=== PATIENT | female | born 1945 | race Caucasian/White ===

== ENCOUNTER → 2017-04-30 | Outpatient (CLI) | payer MEDICARE, OTHER | END | disposition home or self-care (01) | LOC: CARD 10:14 | PROVIDERS: ATTEND Family Medicine | DX: S84 Injury of nerves at lower leg level (principal); G57.83 Other specified mononeuropathies of bilateral lower limbs; X58.XXXA Exposure to other specified factors, initial encounter; Y93.89 Activity, other specified; Y99.8 Other external cause status; Y92.89 Other specified places as the place of occurrence of the external cause | CPT/HCPCS: 95885; 95909 ==

== ENCOUNTER 2019-07-07 17:14 | Outpatient (CLI) | payer MEDICARE | END 2019-07-07 23:59 | disposition home or self-care (01) | LOC: RAD 17:14 | PROVIDERS: ATTEND Obstetrics & Gynecology Female Pelvic Medicine and Reconstructive Surgery | DX: Z01.411 Encounter for gynecological examination (general) (routine) with abnormal findings (principal); N13.30 Unspecified hydronephrosis; R93.5 Abnormal findings on diagnostic imaging of other abdominal regions, including retroperitoneum | CPT/HCPCS: 76830 ==

== ENCOUNTER → 2020-01-17 | Outpatient (CLI) | payer MEDICARE | END | disposition home or self-care (01) | LOC: RAD 07:27 | PROVIDERS: ATTEND Family Medicine | DX: R63.0 Anorexia (principal) | CPT/HCPCS: 74240 ==

== ENCOUNTER 2020-02-01 10:28 | Day surgery (SDC) | payer MEDICARE ==
[~2020-02-01] VITALS: Ht 165.1 cm; Wt 88.0 kg
[2020-02-01] MEDS ORDERED: SODIUM CHLORIDE 0.9% 1,000 ML IV SCH (11:09)
[2020-02-01] MEDS ORDERED: CEFAZOLIN PMX 1GM/50ML 50 ML IV STA (11:09)
[2020-02-01 11:11] VITALS: BP 142/83
[2020-02-01] MEDS ORDERED: CEFAZOLIN PMX 1GM/50ML 50 ML IV ONE (11:30)
[2020-02-01] MEDS ORDERED: PLEASE ENTER HEIGHT AND WEIGHT MC SCH (11:30)
[2020-02-01] MEDS ORDERED: LIDOCAINE 1%, 20ML ONE (11:31)
[2020-02-01] MEDS ORDERED: FENTANYL PF 100 MCG/2ML ONE (11:40)
[2020-02-01] MEDS ORDERED: MIDAZOLAM 1 MG/ML, 5ML ONE (11:41)
[2020-02-01] MEDS ORDERED: FLUMAZENIL 0.1 MG/1 ML, 5ML ONE (11:41)
[2020-02-01] MEDS ORDERED: NALOXONE 1 MG/ML, 2ML ONE (11:41)
[2020-02-02] MEDS ORDERED: RIVA20TA PO (19:26)
[2020-02-02] MEDS ORDERED: CEFD300C37 PO (19:26)
== END 2020-02-01 17:00 | disposition home or self-care (01) ==
LOC: OUT 10:28
PROVIDERS: ATTEND Specialist
DX: N13.1 Hydronephrosis with ureteral stricture, not elsewhere classified (principal); N17.9 Acute kidney failure, unspecified; M81.0 Age-related osteoporosis without current pathological fracture; C54.1 Malignant neoplasm of endometrium; C53.9 Malignant neoplasm of cervix uteri, unspecified; Z79.01 Long term (current) use of anticoagulants; Z79.891 Long term (current) use of opiate analgesic; Z79.899 Other long term (current) drug therapy; Z86.718 Personal history of other venous thrombosis and embolism; Z98.890 Other specified postprocedural states
CPT/HCPCS: 50433; 50693; 99156; 99157; C1725; C1729; C1751; C1769; C1894; C2625; J0690; J2250; J3010; J7030; 76942; J2310

== ENCOUNTER 2020-02-02 09:37 | Inpatient (IN) | payer MEDICARE ==
[~2020-02-02] VITALS: Ht 165.1 cm; Wt 87.5 kg
--- NOTE | 2020-02-02 10:03 | NUR ---
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
[2020-02-02] MEDS ORDERED: MORPHINE SULFATE 4 MG/ML, 1ML ONE (10:50)
[2020-02-02] MEDS ORDERED: FAMOTIDINE 20 MG/2 ML ONE (10:50)
[2020-02-02] MEDS ORDERED: ONDANSETRON 2MG/ML, 2ML ONE (10:50)
[2020-02-02] MEDS ORDERED: ONDANSETRON 2MG/ML, 2ML IVPush ONE (11:00)
[2020-02-02] MEDS ORDERED: MORPHINE SULFATE 4 MG/ML, 1ML IVPush PRN ×2 (11:00→16:30)
[2020-02-02] MEDS ORDERED: SODIUM CHLORIDE 0.9% 1,000ML IVBOLUS ONE (11:00)
[2020-02-02] MEDS ORDERED: SODIUM CHLORIDE FLUSH 10ML SYR IVF ONE (11:00)
[2020-02-02] MEDS ORDERED: FAMOTIDINE 20 MG/2 ML IV ONE (11:00)
--- NOTE | 2020-02-02 11:00 | NUR ---
Pt exhibiting anxiety, dry heaves after meds administered. Spoke with pt & told her we can offer add'l meds if needed, just give a bit more time for meds to work. Verb. understanding, call light within reach, SR up x2. Pt undressed for UA sample. Found to have L nephrostomy tube with CDI dressing, pink tinged urine present in drainage bag attached to leg. States she has tube for kidney failure & does not make urine otherwise. ER informed.
--- NOTE | 2020-02-02 11:26 | NUR ---
Ruth RN: Pt anxious after meds adminstered. Verbally reassured, warm blankets/air blower applied. Pt now resting w/ eyes closed. Did require 2 liters oxygen via NC to maintain adequate SPO2 post-meds.
[2020-02-02 11:40] LABS: MEAN CORPUSCULAR HEMOGLOBIN 22.4 pg (27.0-34.8); MEAN CORPUSCULAR HGB CONC 31.2 g/dL (32.4-35.8); MEAN CORPUSCULAR VOLUME 71.8 fL (80-100); RED BLOOD COUNT 4.87 x10^6/uL (3.82-5.3); RED CELL DISTRIBUTION WIDTH 24.5 % (9.6-15.2)
[2020-02-02 11:45] LABS: ALANINE AMINOTRANSFERASE 32 U/L (12-78); ALBUMIN 2.7 g/dL (3.4-5.0); ANION GAP 7 mmol/L (5-15); CALCIUM 8.8 mg/dL (8.5-10.1); CHLORIDE 110 mmol/L (98-107); CREATININE 1.53 mg/dL (0.55-1.02)
[2020-02-02 11:47] LABS: ALKALINE PHOSPHATASE 218 U/L (45-117); BILIRUBIN,TOTAL 0.3 mg/dL (0.2-1.0); TOTAL PROTEIN 7.7 g/dL (6.4-8.2)
--- NOTE | 2020-02-02 12:00 | NUR ---
REPORT FROM WILBERT VALLE. PT RESTING IN BED, DENIES PAIN. PT ABLE TO ROLL FOR ASSESSMENT, BUT STATES "I'M NOT REALLY SURE WHY I'M HERE. THEY PULLED THE OTHER TUBE OUT, THEY SAID IT WAS ALL FIXED BUT NOW THEY PUT THIS TUBE IN ME AGAIN". RN REORIENTS PATIENT TO TUBES THAT ARE ATTACHED TO HER BODY, AND WHAT THEY ARE FOR. BLANKETS APPLIED. PT STABLE.
[2020-02-02 12:10] LABS: BASOPHILS # (AUTO) 0.05 x10^3/uL (0-0.1); BASOPHILS % (AUTO) 1 % (0-1); EOSINOPHILS # (AUTO) 0.05 x10^3/uL (0-0.4); EOSINOPHILS % (AUTO) 0 % (1-7); LYMPHOCYTES # (AUTO) 0.71 x10^3/uL (1-3.4); LYMPHOCYTES % (AUTO) 6 % (22-44); MD SCAN; MEAN PLATELET VOLUME 10.2 fL (7.4-10.4); MONOCYTES # (AUTO) 0.62 x10^3/uL (0.2-0.8); MONOCYTES % (AUTO) 6 % (2-9); NEUTROPHILS # (AUTO) 9.78 x10^3/uL (1.8-6.8); NEUTROPHILS % (AUTO) 87 % (42-75); PLATELET COUNT 524 x10^3/uL (130-400)
--- NOTE | 2020-02-02 12:30 | NUR ---
PT OFF UNIT FOR TESTING.
--- NOTE | 2020-02-02 13:45 | NUR ---
PT RETURNED FROM TESTING. URINE COLLECTED FROM NEPHROSTOMY TUBE AND SENT TO LAB.
[2020-02-02 14:10] LABS: CULTURE INDICATED? YES; MICROSCOPIC INDICATED
--- NOTE | 2020-02-02 14:50 | NUR ---
PT STABLE, GETTING GRUMPY SHE WANTS TO BE IN A DIFFERENT AREA. PT STATES "WILL THEY TAKE ME SOMEWHERE ELSE AFTER THIS PROCEDURE? IT IS JUST TO DEPRESSING DOWN HERE." RN INFORMS PATIENT THAT UNLESS A BED IS AVAILABLE, SHE WILL HAVE TO COME BACK DOWN HERE.
[2020-02-02] MEDS ORDERED: MORPHINE SULFATE 4 MG/ML, 1ML IVPush ONE (15:00)
[2020-02-02] MEDS ORDERED: FENTANYL PF 100 MCG/2ML ONE (15:38)
[2020-02-02] MEDS ORDERED: MIDAZOLAM 1 MG/ML, 5ML ONE (15:38)
[2020-02-02] MEDS ORDERED: FLUMAZENIL 0.1 MG/1 ML, 5ML ONE (15:38)
[2020-02-02] MEDS ORDERED: LIDOCAINE 1%, 20ML ONE (15:39)
[2020-02-02] MEDS ORDERED: NALOXONE 1 MG/ML, 2ML ONE (15:39)
--- NOTE | 2020-02-02 15:50 | NUR ---
PT TAKEN TO SURGERY TO HAVE A RIGHT NEPHROSTOMY TUBE PLACED. PT UPSET ABOUT HAVING TO HAVE ANOTHER TUBE PLACED.
[2020-02-02] MEDS ORDERED: SODIUM CHLORIDE 0.9% 1,000 ML IV ONE (16:12)
[2020-02-02] MEDS ORDERED: SODIUM CHLORIDE FLUSH 10ML SYR IVF PRN (16:30)
[2020-02-02] MEDS ORDERED: ONDANSETRON 2MG/ML, 2ML IVPush PRN (16:30)
[2020-02-02] MEDS ORDERED: VISIPAQUE 320MG/ML, 50ML BOTTLE ONE (16:46)
--- NOTE | 2020-02-02 16:49 | NUR ---
PT RETURNED FROM PROCEDURE. RIGHT NEPHROSTOMY TUBE INSERTED WITHOUT DIFF. WILL CONTINUE TO MONITOR PATIENT. PT RECEIVED: 3MG VERSED 75MCG FENTANYL & 200ML NACL PT REMAINS DROWSY,. BILATERAL LEG BAGS IN PLACE.
--- NOTE | 2020-02-02 16:58 | NUR ---
SON MARTA CALLED TO CHECK ON HIS MOTHERS STATUS. COMING TO VISIT NOW.
--- NOTE | 2020-02-02 17:18 | NUR ---
REPORT TO JACQUELINE VALLE.
[2020-02-02 17:50] VITALS: BP 159/91
--- NOTE | 2020-02-02 17:53 | NUR ---
SON AT BEDSIDE. BOTH NEPHROSTOMY BAGS EMPTIED FOR A TOTAL RIGHT: 400 LEFT: 50 PT TO ROOM PER TECH.
[2020-02-02] MEDS ORDERED: RIVA20TA PO (19:26)
[2020-02-02] MEDS ORDERED: CEFD300C37 PO (19:26)
[2020-02-02 19:31] VITALS: BP 120/65
[2020-02-02] MEDS ORDERED: morphine SULFATE 10 MG/ML, 1ML IVPush PRN (20:30)
[2020-02-02] MEDS ORDERED: CIPROFLOXACIN/PMX 400MG/200ML 200 ML IV SCH (20:30)
[2020-02-02] MEDS: POTASSIUM CHLORIDE 20 MEQ in SODIUM CHLORIDE 0.45% 1,000 ML IV SCH (20:45)
[2020-02-02] MEDS: CEFDINIR 300 MG CAPSULE PO SCH (21:44)
[2020-02-02] MEDS: MAGNESIUM HYDROXIDE 8%, 30ML UDC PO PRN (21:44)
[2020-02-02] MEDS: TEMAZEPAM 15 MG CAPSULE PO PRN (21:44)
[2020-02-02] MEDS: RIVAROXABAN 20 MG TABLET PO SCH (21:44)
[2020-02-03 01:47] VITALS: BP 118/73
[2020-02-03 04:42] LABS: ALANINE AMINOTRANSFERASE 48 U/L (12-78); ANION GAP 4 mmol/L (5-15); CALCIUM 7.7 mg/dL (8.5-10.1); CHLORIDE 109 mmol/L (98-107); CREATININE 1.45 mg/dL (0.55-1.02)
[2020-02-03 04:45] LABS: ALKALINE PHOSPHATASE 322 U/L (45-117); BILIRUBIN,TOTAL 0.6 mg/dL (0.2-1.0); MEAN CORPUSCULAR HEMOGLOBIN 22.5 pg (27.0-34.8); MEAN CORPUSCULAR HGB CONC 30.9 g/dL (32.4-35.8); MEAN CORPUSCULAR VOLUME 72.7 fL (80-100); MEAN PLATELET VOLUME 9.8 fL (7.4-10.4); PLATELET COUNT 406 x10^3/uL (130-400); RED BLOOD COUNT 3.51 x10^6/uL (3.82-5.3); RED CELL DISTRIBUTION WIDTH 24.5 % (9.6-15.2); TOTAL PROTEIN 5.6 g/dL (6.4-8.2)
[2020-02-03 05:14] LABS: BASOPHILS # (AUTO) 0.05 x10^3/uL (0-0.1); BASOPHILS % (AUTO) 1 % (0-1); EOSINOPHILS % (AUTO) 4 % (1-7); LYMPHOCYTES # (AUTO) 1.35 x10^3/uL (1-3.4); LYMPHOCYTES % (AUTO) 16 % (22-44); MD SCAN; MONOCYTES # (AUTO) 0.74 x10^3/uL (0.2-0.8); MONOCYTES % (AUTO) 9 % (2-9); NEUTROPHILS # (AUTO) 5.92 x10^3/uL (1.8-6.8); NEUTROPHILS % (AUTO) 71 % (42-75)
[2020-02-03] MEDS: POTASSIUM CHLORIDE 20 MEQ in SODIUM CHLORIDE 0.45% 1,000 ML IV SCH ×2 (06:34→17:08)
[2020-02-03 08:14] VITALS: BP 119/72
[2020-02-03] MEDS: CEFDINIR 300 MG CAPSULE PO SCH ×2 (09:38→20:49)
[2020-02-03] MEDS: HYDROcodone/APAP 5/325 TABLET PO PRN ×2 (09:40→17:07)
[2020-02-03 13:32] VITALS: BP 103/66
[2020-02-03] MEDS: ONDANSETRON 2MG/ML, 2ML IVPush PRN (13:47)
[2020-02-03] MEDS: MAGNESIUM HYDROXIDE 8%, 30ML UDC PO PRN (17:07)
[2020-02-03] MEDS: RIVAROXABAN 20 MG TABLET PO SCH (17:07)
[2020-02-03 19:46] VITALS: BP 127/78
[2020-02-03] MEDS: TEMAZEPAM 15 MG CAPSULE PO PRN (20:49)
[2020-02-03] MEDS: MAGNESIUM HYDROXIDE 8%, 30ML UDC PO SCH (20:49)
[2020-02-03] MEDS ORDERED: MAGNESIUM HYDROXIDE 8%, 30ML UDC PO SCH (22:30)
[2020-02-04 00:53] VITALS: BP 129/77
[2020-02-04] MEDS: HYDROcodone/APAP 5/325 TABLET PO PRN ×3 (00:57→16:15)
[2020-02-04] MEDS: MAGNESIUM HYDROXIDE 8%, 30ML UDC PO SCH ×6 (00:58→20:59)
[2020-02-04] MEDS: POTASSIUM CHLORIDE 20 MEQ in SODIUM CHLORIDE 0.45% 1,000 ML IV SCH ×2 (03:57→14:21)
[2020-02-04 07:23] VITALS: BP 145/80
[2020-02-04 12:24] VITALS: BP 131/77
[2020-02-04 14:20] LABS: MEAN CORPUSCULAR HEMOGLOBIN 22.4 pg (27.0-34.8); MEAN CORPUSCULAR HGB CONC 30.4 g/dL (32.4-35.8); MEAN CORPUSCULAR VOLUME 73.7 fL (80-100); PLATELET COUNT 447 x10^3/uL (130-400); RED BLOOD COUNT 3.72 x10^6/uL (3.82-5.3); RED CELL DISTRIBUTION WIDTH 24.5 % (9.6-15.2)
[2020-02-04] MEDS: ONDANSETRON 2MG/ML, 2ML IVPush PRN (14:26)
[2020-02-04 14:31] LABS: ALANINE AMINOTRANSFERASE 30 U/L (12-78); CALCIUM 7.5 mg/dL (8.5-10.1); CREATININE 1.24 mg/dL (0.55-1.02)
[2020-02-04 14:33] LABS: ALKALINE PHOSPHATASE 252 U/L (45-117); BILIRUBIN,TOTAL 0.2 mg/dL (0.2-1.0); TOTAL PROTEIN 5.7 g/dL (6.4-8.2)
[2020-02-04 14:52] LABS: BASOPHILS # (AUTO) 0.05 x10^3/uL (0-0.1); BASOPHILS % (AUTO) 1 % (0-1); EOSINOPHILS # (AUTO) 0.17 x10^3/uL (0-0.4); EOSINOPHILS % (AUTO) 2 % (1-7); LYMPHOCYTES # (AUTO) 0.71 x10^3/uL (1-3.4); LYMPHOCYTES % (AUTO) 8 % (22-44); MD MORPH REVIEW ONLY; MONOCYTES # (AUTO) 0.62 x10^3/uL (0.2-0.8); MONOCYTES % (AUTO) 7 % (2-9); NEUTROPHILS # (AUTO) 7.86 x10^3/uL (1.8-6.8); NEUTROPHILS % (AUTO) 84 % (42-75)
[2020-02-04 14:53] LABS: ANION GAP 6 mmol/L (5-15); ANISOCYTOSIS 1+; CHLORIDE 107 mmol/L (98-107); MICROCYTOSIS 1+; POLYCHROMASIA 1+
[2020-02-04 14:54] LABS: <PLATELET ESTIMATE> ADEQUATE; <PLT MORPHOLOGY> NORMAL PLT MORPH
[2020-02-04] MEDS: RIVAROXABAN 20 MG TABLET PO SCH (18:30)
[2020-02-04 19:28] VITALS: BP 114/72
[2020-02-04] MEDS: TEMAZEPAM 15 MG CAPSULE PO PRN ×2 (21:18→21:24)
[2020-02-05] MEDS: MAGNESIUM HYDROXIDE 8%, 30ML UDC PO SCH ×5 (00:23→17:00)
[2020-02-05] MEDS: POTASSIUM CHLORIDE 20 MEQ in SODIUM CHLORIDE 0.45% 1,000 ML IV SCH ×2 (01:21→14:26)
[2020-02-05 01:22] VITALS: BP 115/76
[2020-02-05 07:36] VITALS: BP 118/69
[2020-02-05] MEDS: HYDROcodone/APAP 5/325 TABLET PO PRN ×4 (09:07→20:36)
[2020-02-05 14:11] VITALS: BP 121/71
[2020-02-05 15:07] LABS: BASOPHILS # (AUTO) 0.04 x10^3/uL (0-0.1); BASOPHILS % (AUTO) 1 % (0-1); EOSINOPHILS # (AUTO) 0.16 x10^3/uL (0-0.4); EOSINOPHILS % (AUTO) 2 % (1-7); LYMPHOCYTES # (AUTO) 0.95 x10^3/uL (1-3.4); LYMPHOCYTES % (AUTO) 10 % (22-44); MD NO; MEAN CORPUSCULAR HEMOGLOBIN 22.7 pg (27.0-34.8); MEAN CORPUSCULAR VOLUME 73.3 fL (80-100); MEAN PLATELET VOLUME 9.3 fL (7.4-10.4); MONOCYTES % (AUTO) 7 % (2-9); NEUTROPHILS % (AUTO) 81 % (42-75); PLATELET COUNT 453 x10^3/uL (130-400); RED BLOOD COUNT 3.63 x10^6/uL (3.82-5.3); RED CELL DISTRIBUTION WIDTH 24.1 % (9.6-15.2)
[2020-02-05 15:13] LABS: ALANINE AMINOTRANSFERASE 22 U/L (12-78); ALBUMIN 1.9 g/dL (3.4-5.0); ANION GAP 4 mmol/L (5-15); CALCIUM 8.3 mg/dL (8.5-10.1); CHLORIDE 105 mmol/L (98-107)
[2020-02-05 15:15] LABS: ALKALINE PHOSPHATASE 205 U/L (45-117); BILIRUBIN,TOTAL 0.1 mg/dL (0.2-1.0); CREATININE 1.16 mg/dL (0.55-1.02); TOTAL PROTEIN 5.9 g/dL (6.4-8.2)
[2020-02-05] MEDS: RIVAROXABAN 20 MG TABLET PO SCH (17:29)
[2020-02-05] MEDS: MORPHINE SULFATE 4 MG/ML, 1ML IVPush PRN (19:58)
[2020-02-05 20:44] VITALS: BP 123/73
[2020-02-05] MEDS: TEMAZEPAM 15 MG CAPSULE PO PRN (21:38)
[2020-02-06] MEDS: POTASSIUM CHLORIDE 20 MEQ in SODIUM CHLORIDE 0.45% 1,000 ML IV SCH ×2 (02:45→12:17)
[2020-02-06] MEDS: HYDROcodone/APAP 5/325 TABLET PO PRN ×4 (02:46→20:20)
[2020-02-06 06:20] VITALS: BP 113/73
[2020-02-06] MEDS ORDERED: LIDOCAINE 1%, 10ML ONE (12:21)
[2020-02-06] MEDS ORDERED: FLUMAZENIL 0.1 MG/1 ML, 5ML ONE (13:05)
[2020-02-06] MEDS ORDERED: MIDAZOLAM 1 MG/ML, 5ML ONE ×2 (13:05)
[2020-02-06] MEDS ORDERED: NALOXONE 1 MG/ML, 2ML ONE (13:05)
[2020-02-06] MEDS ORDERED: FENTANYL PF 100 MCG/2ML ONE (13:05)
[2020-02-06 13:56] VITALS: BP 116/78
[2020-02-06] MEDS ORDERED: CEFAZOLIN PMX 1GM/50ML 50 ML ONE (14:04)
[2020-02-06] MEDS: RIVAROXABAN 20 MG TABLET PO SCH (17:43)
[2020-02-06 19:01] VITALS: BP 100/65
[2020-02-06] MEDS: TEMAZEPAM 15 MG CAPSULE PO PRN ×2 (21:23→21:24)
[2020-02-06] MEDS: MAGNESIUM HYDROXIDE 8%, 30ML UDC PO PRN (22:21)
[2020-02-07 01:20] VITALS: BP 105/62
[2020-02-07] MEDS: MAGNESIUM HYDROXIDE 8%, 30ML UDC PO PRN (03:06)
[2020-02-07] MEDS: POTASSIUM CHLORIDE 20 MEQ in SODIUM CHLORIDE 0.45% 1,000 ML IV SCH ×2 (03:15→12:45)
[2020-02-07] MEDS: HYDROcodone/APAP 5/325 TABLET PO PRN ×4 (03:15→23:09)
[2020-02-07 06:54] VITALS: BP 112/74
[2020-02-07 15:22] VITALS: BP 128/74
[2020-02-07] MEDS: MAGNESIUM HYDROXIDE 8%, 30ML UDC PO SCH (15:42)
[2020-02-07] MEDS: RIVAROXABAN 20 MG TABLET PO SCH (17:36)
[2020-02-07 19:22] VITALS: BP 158/84
[2020-02-07] MEDS: TEMAZEPAM 15 MG CAPSULE PO PRN ×2 (19:38→19:39)
[2020-02-08 00:44] VITALS: BP 156/87
[2020-02-08] MEDS: POTASSIUM CHLORIDE 20 MEQ in SODIUM CHLORIDE 0.45% 1,000 ML IV SCH (01:39)
[2020-02-08 05:03] LABS: ANION GAP 3 mmol/L (5-15); CALCIUM 8.3 mg/dL (8.5-10.1); CHLORIDE 107 mmol/L (98-107); CREATININE 1.42 mg/dL (0.55-1.02)
[2020-02-08] MEDS: ONDANSETRON 2MG/ML, 2ML IVPush PRN ×2 (05:31→11:56)
[2020-02-08] MEDS: MORPHINE SULFATE 4 MG/ML, 1ML IVPush PRN ×3 (05:41→16:51)
[2020-02-08 08:15] VITALS: BP 132/84
[2020-02-08] MEDS: MAGNESIUM HYDROXIDE 8%, 30ML UDC PO SCH ×2 (08:28→11:56)
[2020-02-08] MEDS: HYDROcodone/APAP 5/325 TABLET PO PRN ×2 (11:39→19:27)
[2020-02-08 13:00] VITALS: BP 124/80
[2020-02-08] MEDS: RIVAROXABAN 20 MG TABLET PO SCH (16:51)
[2020-02-08] MEDS: FAMOTIDINE 10 MG TAB PO SCH (19:27)
[2020-02-08 20:18] VITALS: BP 119/72
[2020-02-08] MEDS: TEMAZEPAM 15 MG CAPSULE PO PRN ×2 (22:50→22:51)
[2020-02-09 01:33] VITALS: BP 125/75
[2020-02-09] MEDS: SODIUM CHLORIDE 0.45% 1,000 ML IV SCH ×2 (01:44→17:13)
[2020-02-09] MEDS: MORPHINE SULFATE 4 MG/ML, 1ML IVPush PRN ×2 (02:58→17:13)
[2020-02-09 05:12] LABS: MEAN CORPUSCULAR HEMOGLOBIN 23.1 pg (27.0-34.8); MEAN CORPUSCULAR HGB CONC 31.3 g/dL (32.4-35.8); MEAN CORPUSCULAR VOLUME 73.6 fL (80-100); MEAN PLATELET VOLUME 9.6 fL (7.4-10.4); PLATELET COUNT 561 x10^3/uL (130-400); RED BLOOD COUNT 3.72 x10^6/uL (3.82-5.3)
[2020-02-09 05:13] LABS: CALCIUM 8.8 mg/dL (8.5-10.1); CHLORIDE 104 mmol/L (98-107)
[2020-02-09 05:16] LABS: ANION GAP 4 mmol/L (5-15); CREATININE 2.26 mg/dL (0.55-1.02)
[2020-02-09] MEDS: HYDROcodone/APAP 5/325 TABLET PO PRN (05:49)
[2020-02-09] MEDS: ONDANSETRON 2MG/ML, 2ML IVPush PRN ×2 (05:52→17:14)
[2020-02-09 06:12] LABS: MD YES
[2020-02-09 06:14] LABS: <PLATELET ESTIMATE> INCREASED; <PLT MORPHOLOGY> NORMAL PLT MORPH; ANISOCYTOSIS 1+; LYMPH#(MANUAL) 0.71 x10^3/uL (1-3.4); LYMPHS% (MANUAL) 3 % (22-44); MICROCYTOSIS 1+; MONOS#(MANUAL) 0.47 x10^3/uL (0.3-2.7); MONOS% (MANUAL) 2 % (2-9); POLYCHROMASIA 1+; SEG#(MANUAL) 22.42 x10^3/uL (1.8-6.8); SEGS% (MANUAL) 95 % (42-75)
[2020-02-09] MEDS ORDERED: FUROSEMIDE 20 MG/2 ML IV ONE (07:00)
[2020-02-09 07:36] VITALS: BP 117/73
[2020-02-09] MEDS: FAMOTIDINE 10 MG TAB PO SCH ×2 (09:00→20:16)
[2020-02-09 09:57] LABS: ANION GAP 7 mmol/L (5-15); CALCIUM 8.4 mg/dL (8.5-10.1); CHLORIDE 104 mmol/L (98-107); CREATININE 2.47 mg/dL (0.55-1.02)
[2020-02-09] MEDS: MAGNESIUM HYDROXIDE 8%, 30ML UDC PO SCH (10:40)
[2020-02-09 11:54] LABS: ANION GAP 6 mmol/L (5-15); CALCIUM 8.6 mg/dL (8.5-10.1); CHLORIDE 103 mmol/L (98-107)
[2020-02-09 11:55] LABS: CREATININE 2.36 mg/dL (0.55-1.02)
[2020-02-09 13:04] VITALS: BP 109/69
[2020-02-09] MEDS ORDERED: MIDAZOLAM 1 MG/ML, 5ML ONE (13:27)
[2020-02-09] MEDS ORDERED: FLUMAZENIL 0.1 MG/1 ML, 5ML ONE (13:27)
[2020-02-09] MEDS ORDERED: NALOXONE 1 MG/ML, 2ML ONE (13:27)
[2020-02-09] MEDS ORDERED: FENTANYL PF 100 MCG/2ML ONE (13:27)
[2020-02-09] MEDS ORDERED: LIDOCAINE 1%, 10ML ONE (13:31)
[2020-02-09] MEDS ORDERED: VISIPAQUE 270 MG/ML, 50ML BOTTLE ONE (14:12)
[2020-02-09 18:43] VITALS: BP 100/56
[2020-02-09] MEDS: RIVAROXABAN 20 MG TABLET PO SCH (18:47)
[2020-02-09] MEDS: TEMAZEPAM 15 MG CAPSULE PO PRN (20:16)
[2020-02-10] VITALS (10 sets, daily range): BP systolic 97–117; BP diastolic 55–65
[2020-02-10] MEDS: HYDROcodone/APAP 5/325 TABLET PO PRN ×4 (01:19→21:12)
[2020-02-10] MEDS: SODIUM CHLORIDE 0.45% 1,000 ML IV SCH ×2 (01:20→17:00)
[2020-02-10 05:20] LABS: MEAN CORPUSCULAR HEMOGLOBIN 23.3 pg (27.0-34.8); MEAN CORPUSCULAR HGB CONC 31.8 g/dL (32.4-35.8); MEAN CORPUSCULAR VOLUME 73.1 fL (80-100); MEAN PLATELET VOLUME 9.3 fL (7.4-10.4); PLATELET COUNT 449 x10^3/uL (130-400); RED BLOOD COUNT 2.97 x10^6/uL (3.82-5.3); RED CELL DISTRIBUTION WIDTH 24.3 % (9.6-15.2)
[2020-02-10 05:34] LABS: ANION GAP 4 mmol/L (5-15); CALCIUM 8.3 mg/dL (8.5-10.1); CHLORIDE 104 mmol/L (98-107); CREATININE 1.47 mg/dL (0.55-1.02)
[2020-02-10] MEDS ORDERED: ACETAMINOPHEN 325 MG TABLET PO ONE (06:30)
[2020-02-10] MEDS ORDERED: DIPHENHYDRAMINE 25 MG CAPSULE PO ONE (06:30)
[2020-02-10 06:42] LABS: BASOPHILS # (AUTO) 0.02 x10^3/uL (0-0.1); BASOPHILS % (AUTO) 0 % (0-1); EOSINOPHILS # (AUTO) 0.21 x10^3/uL (0-0.4); EOSINOPHILS % (AUTO) 1 % (1-7); LYMPHOCYTES # (AUTO) 0.93 x10^3/uL (1-3.4); LYMPHOCYTES % (AUTO) 6 % (22-44); MD SCAN; MONOCYTES # (AUTO) 1.39 x10^3/uL (0.2-0.8); MONOCYTES % (AUTO) 9 % (2-9); NEUTROPHILS # (AUTO) 13.21 x10^3/uL (1.8-6.8); NEUTROPHILS % (AUTO) 84 % (42-75)
[2020-02-10] MEDS: FAMOTIDINE 10 MG TAB PO SCH ×2 (09:29→21:11)
[2020-02-10] MEDS: MAGNESIUM HYDROXIDE 8%, 30ML UDC PO SCH (09:29)
[2020-02-10 11:24] LABS: MICROSCOPIC INDICATED
[2020-02-10 11:26] LABS: CULTURE INDICATED? YES
[2020-02-10] MEDS ORDERED: POLYETHYLENE GLYCOL 17 GM PACKET PO PRN (20:00)
[2020-02-10] MEDS ORDERED: BISACODYL 10 MG SUPP PR PRN ×2 (20:00→21:00)
[2020-02-10] MEDS: TEMAZEPAM 15 MG CAPSULE PO PRN ×2 (21:11→21:12)
[2020-02-11 02:19] VITALS: BP 109/63
[2020-02-11] MEDS: SODIUM CHLORIDE 0.45% 1,000 ML IV SCH (02:20)
[2020-02-11] MEDS: HYDROcodone/APAP 5/325 TABLET PO PRN ×3 (03:41→17:07)
[2020-02-11 06:14] LABS: MEAN CORPUSCULAR HEMOGLOBIN 24.4 pg (27.0-34.8); MEAN CORPUSCULAR HGB CONC 31.8 g/dL (32.4-35.8); MEAN CORPUSCULAR VOLUME 76.7 fL (80-100); MEAN PLATELET VOLUME 9.7 fL (7.4-10.4); PLATELET COUNT 436 x10^3/uL (130-400); RED BLOOD COUNT 3.59 x10^6/uL (3.82-5.3); RED CELL DISTRIBUTION WIDTH 22.6 % (9.6-15.2)
[2020-02-11 06:17] LABS: ANION GAP 3 mmol/L (5-15); CALCIUM 8.5 mg/dL (8.5-10.1); CHLORIDE 106 mmol/L (98-107)
[2020-02-11 06:18] LABS: CREATININE 1.11 mg/dL (0.55-1.02)
[2020-02-11 06:47] LABS: BASOPHILS # (AUTO) 0.02 x10^3/uL (0-0.1); BASOPHILS % (AUTO) 0 % (0-1); EOSINOPHILS # (AUTO) 0.37 x10^3/uL (0-0.4); EOSINOPHILS % (AUTO) 4 % (1-7); LYMPHOCYTES % (AUTO) 10 % (22-44); MD SCAN; MONOCYTES % (AUTO) 9 % (2-9); NEUTROPHILS # (AUTO) 8.07 x10^3/uL (1.8-6.8); NEUTROPHILS % (AUTO) 78 % (42-75)
[2020-02-11] MEDS: POLYETHYLENE GLYCOL 17 GM PACKET PO SCH (08:12)
[2020-02-11] MEDS: MAGNESIUM HYDROXIDE 8%, 30ML UDC PO SCH (08:12)
[2020-02-11] MEDS: FAMOTIDINE 10 MG TAB PO SCH ×2 (08:12→20:50)
[2020-02-11 08:26] VITALS: BP 106/67
[2020-02-11] MEDS ORDERED: POLYETHYLENE GLYCOL 17 GM PACKET PO ONE (09:00)
[2020-02-11 12:07] VITALS: BP 107/70
[2020-02-11] MEDS: RIVAROXABAN 20 MG TABLET PO SCH (12:50)
[2020-02-11 19:26] VITALS: BP_SYST 105; BP_SYST 98; BP_DIAS 64; BP_DIAS 69
[2020-02-11] MEDS: TEMAZEPAM 15 MG CAPSULE PO PRN (20:50)
[2020-02-12 02:50] VITALS: BP 112/68
[2020-02-12] MEDS: HYDROcodone/APAP 5/325 TABLET PO PRN ×2 (02:59→10:31)
[2020-02-12 07:14] VITALS: BP 109/62
[2020-02-12] MEDS: MAGNESIUM HYDROXIDE 8%, 30ML UDC PO SCH (09:00)
--- NOTE | 2020-02-12 09:38 | NUR ---
Green activity sheet initiated. Up in chair for every meal, [place] [place] [facility] 3x/day. RN and pt agreed. Addendum: 02/12/20 at 0948 by CATALINO SEYMOUR OT Amended: Links added.
[2020-02-12] MEDS: POLYETHYLENE GLYCOL 17 GM PACKET PO SCH (10:31)
[2020-02-12] MEDS: FAMOTIDINE 10 MG TAB PO SCH ×2 (10:31→20:25)
[2020-02-12] MEDS: ONDANSETRON 2MG/ML, 2ML IVPush PRN ×2 (10:34→19:38)
--- NOTE | 2020-02-12 10:56 | NUR ---
02/12/20: Charly initiated: up to chair for meals [facility] pt and RN agreed Addendum: 02/12/20 at 1056 by Lovely Langford PT Amended: Links added.
[2020-02-12 13:08] VITALS: BP 128/80
[2020-02-12] MEDS: MORPHINE SULFATE 4 MG/ML, 1ML IVPush PRN (14:03)
[2020-02-12 15:33] LABS: ANION GAP 4 mmol/L (5-15); CALCIUM 8.7 mg/dL (8.5-10.1); CHLORIDE 104 mmol/L (98-107); CREATININE 0.87 mg/dL (0.55-1.02)
[2020-02-12 15:34] LABS: MEAN CORPUSCULAR HEMOGLOBIN 24.2 pg (27.0-34.8); MEAN CORPUSCULAR HGB CONC 31.4 g/dL (32.4-35.8); MEAN CORPUSCULAR VOLUME 76.9 fL (80-100); MEAN PLATELET VOLUME 8.8 fL (7.4-10.4); PLATELET COUNT 534 x10^3/uL (130-400); RED BLOOD COUNT 3.68 x10^6/uL (3.82-5.3); RED CELL DISTRIBUTION WIDTH 23.2 % (9.6-15.2)
[2020-02-12 16:26] LABS: BASOPHILS # (AUTO) 0.03 x10^3/uL (0-0.1); BASOPHILS % (AUTO) 0 % (0-1); EOSINOPHILS # (AUTO) 0.25 x10^3/uL (0-0.4); EOSINOPHILS % (AUTO) 3 % (1-7); LYMPHOCYTES # (AUTO) 0.93 x10^3/uL (1-3.4); LYMPHOCYTES % (AUTO) 11 % (22-44); MD MORPH REVIEW ONLY; MONOCYTES # (AUTO) 0.69 x10^3/uL (0.2-0.8); MONOCYTES % (AUTO) 8 % (2-9); NEUTROPHILS # (AUTO) 6.34 x10^3/uL (1.8-6.8); NEUTROPHILS % (AUTO) 77 % (42-75)
[2020-02-12 16:28] LABS: HYPOCHROMIA 1+; MICROCYTOSIS 1+; POLYCHROMASIA 1+
[2020-02-12 16:29] LABS: <PLATELET ESTIMATE> INCREASED; <PLT MORPHOLOGY> NORMAL PLT MORPH; OVALOCYTES 1+; ROULEAUX 1+
[2020-02-12] MEDS: RIVAROXABAN 20 MG TABLET PO SCH (17:33)
[2020-02-12 19:12] VITALS: BP 115/74
[2020-02-12] MEDS: TEMAZEPAM 15 MG CAPSULE PO PRN ×2 (20:24→20:25)
[2020-02-13 01:51] VITALS: BP 134/82
[2020-02-13 04:37] LABS: MEAN CORPUSCULAR HEMOGLOBIN 24.3 pg (27.0-34.8); MEAN CORPUSCULAR HGB CONC 31.7 g/dL (32.4-35.8); MEAN CORPUSCULAR VOLUME 76.6 fL (80-100); MEAN PLATELET VOLUME 8.9 fL (7.4-10.4); PLATELET COUNT 517 x10^3/uL (130-400); RED BLOOD COUNT 3.61 x10^6/uL (3.82-5.3); RED CELL DISTRIBUTION WIDTH 23.2 % (9.6-15.2)
[2020-02-13 04:39] LABS: ANION GAP 3 mmol/L (5-15); CALCIUM 8.6 mg/dL (8.5-10.1); CHLORIDE 107 mmol/L (98-107); CREATININE 0.84 mg/dL (0.55-1.02)
[2020-02-13] MEDS: HYDROcodone/APAP 5/325 TABLET PO PRN ×2 (04:42→18:11)
[2020-02-13 05:49] LABS: BASOPHILS # (AUTO) 0.03 x10^3/uL (0-0.1); BASOPHILS % (AUTO) 0 % (0-1); EOSINOPHILS # (AUTO) 0.26 x10^3/uL (0-0.4); EOSINOPHILS % (AUTO) 3 % (1-7); LYMPHOCYTES # (AUTO) 1.03 x10^3/uL (1-3.4); LYMPHOCYTES % (AUTO) 13 % (22-44); MD SCAN; MONOCYTES # (AUTO) 0.83 x10^3/uL (0.2-0.8); MONOCYTES % (AUTO) 10 % (2-9); NEUTROPHILS # (AUTO) 5.81 x10^3/uL (1.8-6.8); NEUTROPHILS % (AUTO) 73 % (42-75)
[2020-02-13 07:08] VITALS: BP 141/79
[2020-02-13] MEDS: FAMOTIDINE 10 MG TAB PO SCH ×2 (08:50→20:44)
[2020-02-13] MEDS: MAGNESIUM HYDROXIDE 8%, 30ML UDC PO SCH (08:50)
[2020-02-13] MEDS: CALCIUM CARBONATE 500 MG TAB.CHEW PO PRN (08:50)
[2020-02-13] MEDS: POLYETHYLENE GLYCOL 17 GM PACKET PO SCH (08:51)
[2020-02-13] MEDS: MORPHINE SULFATE 4 MG/ML, 1ML IVPush PRN (11:01)
[2020-02-13 14:26] VITALS: BP 138/68
[2020-02-13] MEDS: RIVAROXABAN 20 MG TABLET PO SCH (18:11)
[2020-02-13 18:25] VITALS: BP 124/73
[2020-02-13] MEDS: TEMAZEPAM 15 MG CAPSULE PO PRN (20:44)
[2020-02-14 01:11] VITALS: BP 153/84
[2020-02-14] MEDS: HYDROcodone/APAP 5/325 TABLET PO PRN ×3 (06:05→19:36)
[2020-02-14 07:10] VITALS: BP 122/75
[2020-02-14] MEDS: FAMOTIDINE 10 MG TAB PO SCH (09:47)
[2020-02-14] MEDS: POLYETHYLENE GLYCOL 17 GM PACKET PO SCH (09:47)
[2020-02-14] MEDS: MAGNESIUM HYDROXIDE 8%, 30ML UDC PO SCH (09:47)
[2020-02-14 13:38] VITALS: BP 135/80
[2020-02-14] MEDS: CALCIUM CARBONATE 500 MG TAB.CHEW PO PRN (18:02)
[2020-02-14] MEDS: RIVAROXABAN 20 MG TABLET PO SCH (18:02)
[2020-02-14 19:21] VITALS: BP 135/68
[2020-02-14] MEDS: FAMOTIDINE 20 MG TABLET PO SCH (19:36)
[2020-02-14] MEDS: TEMAZEPAM 15 MG CAPSULE PO PRN ×2 (20:52→22:15)
[2020-02-15 00:22] VITALS: BP 132/81
[2020-02-15] MEDS ORDERED: SODIUM CHLORIDE 0.9% 2,000 ML IV ONE (04:00)
[2020-02-15] MEDS: HYDROcodone/APAP 5/325 TABLET PO PRN ×2 (04:09→19:33)
[2020-02-15 05:12] LABS: MEAN CORPUSCULAR HGB CONC 31.2 g/dL (32.4-35.8); MEAN CORPUSCULAR VOLUME 76.9 fL (80-100); MEAN PLATELET VOLUME 8.8 fL (7.4-10.4); PLATELET COUNT 606 x10^3/uL (130-400); RED BLOOD COUNT 4.01 x10^6/uL (3.82-5.3); RED CELL DISTRIBUTION WIDTH 23.2 % (9.6-15.2)
[2020-02-15 05:14] LABS: ALANINE AMINOTRANSFERASE 38 U/L (12-78); ANION GAP 3 mmol/L (5-15); CALCIUM 9.1 mg/dL (8.5-10.1); CHLORIDE 103 mmol/L (98-107); CREATININE 0.79 mg/dL (0.55-1.02)
[2020-02-15 05:17] LABS: ALKALINE PHOSPHATASE 180 U/L (45-117); BILIRUBIN,TOTAL 0.3 mg/dL (0.2-1.0); TOTAL PROTEIN 6.6 g/dL (6.4-8.2)
[2020-02-15 05:52] LABS: BASOPHILS # (AUTO) 0.08 x10^3/uL (0-0.1); BASOPHILS % (AUTO) 1 % (0-1); EOSINOPHILS # (AUTO) 0.24 x10^3/uL (0-0.4); EOSINOPHILS % (AUTO) 3 % (1-7); LYMPHOCYTES # (AUTO) 1.13 x10^3/uL (1-3.4); LYMPHOCYTES % (AUTO) 13 % (22-44); MD SCAN; MONOCYTES % (AUTO) 9 % (2-9); NEUTROPHILS # (AUTO) 6.47 x10^3/uL (1.8-6.8); NEUTROPHILS % (AUTO) 74 % (42-75)
[2020-02-15 07:32] VITALS: BP 129/78
[2020-02-15] MEDS: POLYETHYLENE GLYCOL 17 GM PACKET PO SCH (07:58)
[2020-02-15] MEDS: MAGNESIUM HYDROXIDE 8%, 30ML UDC PO SCH (07:58)
[2020-02-15] MEDS: FAMOTIDINE 20 MG TABLET PO SCH (07:58)
[2020-02-15] MEDS: MORPHINE SULFATE 4 MG/ML, 1ML IVPush PRN (08:10)
[2020-02-15] MEDS ORDERED: ZOLPIDEM 5MG TABLET PO PRN (10:30)
[2020-02-15] MEDS ORDERED: PROCHLORPERAZINE 10MG TABLET PO PRN (11:30)
[2020-02-15] MEDS ORDERED: DIPHENHYDRAMINE 50 MG/ML, 1ML IVPush ONE (13:00)
[2020-02-15] MEDS ORDERED: FOSAPREPITANT 150 MG in SODIUM CHLORIDE 0.9% 145 ML IV ONE (13:00)
[2020-02-15] MEDS ORDERED: FAMOTIDINE 20 MG/2 ML IVPush ONE (13:00)
[2020-02-15] MEDS ORDERED: ONDANSETRON 16 MG, DEXAMETHASONE 12 MG in SODIUM CHLORIDE 0.9% 50 ML IVPB ONE (13:00)
[2020-02-15 14:06] VITALS: BP 127/71
[2020-02-15] MEDS ORDERED: CISPLATIN IV ONE (15:00)
[2020-02-15] MEDS ORDERED: SODIUM CHLORIDE 0.9% IV ONE (15:00)
[2020-02-15] MEDS: RIVAROXABAN 20 MG TABLET PO SCH (16:46)
[2020-02-15] MEDS ORDERED: SODIUM CHLORIDE 0.9% IVPush ONE ×2 (17:00→18:00)
[2020-02-15] MEDS ORDERED: MANNITOL IVPush ONE ×2 (17:00→18:00)
[2020-02-15 19:38] VITALS: BP 134/73
[2020-02-15] MEDS: LORazepam 0.5MG TABLET PO PRN (23:39)
[2020-02-16 00:40] VITALS: BP 120/68
[2020-02-16] MEDS: HYDROcodone/APAP 5/325 TABLET PO PRN ×3 (06:18→20:11)
[2020-02-16] MEDS: CALCIUM CARBONATE 500 MG TAB.CHEW PO PRN (06:18)
[2020-02-16 06:42] VITALS: BP 131/80
[2020-02-16] MEDS: FAMOTIDINE 20 MG TABLET PO SCH (08:18)
[2020-02-16] MEDS: MAGNESIUM HYDROXIDE 8%, 30ML UDC PO SCH (08:18)
[2020-02-16] MEDS: POLYETHYLENE GLYCOL 17 GM PACKET PO SCH (08:19)
[2020-02-16] MEDS: ONDANSETRON 2MG/ML, 2ML IVPush PRN (08:37)
[2020-02-16] MEDS: PROCHLORPERAZINE 5 MG/ML, 2ML IV SCH ×3 (11:07→23:00)
[2020-02-16] MEDS ORDERED: PROCHLORPERAZINE 5 MG/ML, 2ML IV SCH (13:00)
[2020-02-16] MEDS: ONDANSETRON 2MG/ML, 2ML IV SCH ×2 (13:51→20:12)
[2020-02-16 14:01] VITALS: BP 112/68
[2020-02-16] MEDS: RIVAROXABAN 20 MG TABLET PO SCH (16:43)
[2020-02-16 19:45] VITALS: BP 126/71
[2020-02-16] MEDS: TEMAZEPAM 15 MG CAPSULE PO PRN (20:11)
[2020-02-16] MEDS: LORazepam 0.5MG TABLET PO PRN (23:35)
[2020-02-17] MEDS: ONDANSETRON 2MG/ML, 2ML IV SCH ×2 (02:38→08:06)
[2020-02-17 02:41] VITALS: BP 136/65
[2020-02-17] MEDS: HYDROcodone/APAP 5/325 TABLET PO PRN ×3 (05:23→23:12)
[2020-02-17] MEDS: PROCHLORPERAZINE 5 MG/ML, 2ML IV SCH (05:23)
[2020-02-17 05:44] LABS: MEAN CORPUSCULAR HEMOGLOBIN 24.4 pg (27.0-34.8); MEAN CORPUSCULAR HGB CONC 31.6 g/dL (32.4-35.8); MEAN CORPUSCULAR VOLUME 77.1 fL (80-100); MEAN PLATELET VOLUME 8.6 fL (7.4-10.4); PLATELET COUNT 530 x10^3/uL (130-400); RED BLOOD COUNT 3.49 x10^6/uL (3.82-5.3); RED CELL DISTRIBUTION WIDTH 23.4 % (9.6-15.2)
[2020-02-17 05:51] LABS: ALBUMIN 1.9 g/dL (3.4-5.0); ANION GAP 7 mmol/L (5-15); CALCIUM 8.5 mg/dL (8.5-10.1); CHLORIDE 105 mmol/L (98-107)
[2020-02-17 05:56] LABS: ALANINE AMINOTRANSFERASE 24 U/L (12-78); ALKALINE PHOSPHATASE 139 U/L (45-117); BILIRUBIN,TOTAL 0.2 mg/dL (0.2-1.0); CREATININE 0.89 mg/dL (0.55-1.02); TOTAL PROTEIN 5.6 g/dL (6.4-8.2)
[2020-02-17 06:03] LABS: BASOPHILS # (AUTO) 0.04 x10^3/uL (0-0.1); BASOPHILS % (AUTO) 0 % (0-1); EOSINOPHILS # (AUTO) 0.13 x10^3/uL (0-0.4); EOSINOPHILS % (AUTO) 1 % (1-7); LYMPHOCYTES # (AUTO) 1.15 x10^3/uL (1-3.4); LYMPHOCYTES % (AUTO) 8 % (22-44); MD MORPH REVIEW ONLY; MONOCYTES % (AUTO) 6 % (2-9); NEUTROPHILS # (AUTO) 11.71 x10^3/uL (1.8-6.8); NEUTROPHILS % (AUTO) 85 % (42-75)
[2020-02-17 06:04] LABS: ANISOCYTOSIS 2+; HYPOCHROMIA 1+; MICROCYTOSIS 1+; OVALOCYTES 1+; POLYCHROMASIA 1+
[2020-02-17 06:05] LABS: <PLATELET ESTIMATE> INCREASED; <PLT MORPHOLOGY> NORMAL PLT MORPH
[2020-02-17 06:50] VITALS: BP 136/80
[2020-02-17] MEDS: MAGNESIUM HYDROXIDE 8%, 30ML UDC PO SCH (07:02)
[2020-02-17] MEDS: POLYETHYLENE GLYCOL 17 GM PACKET PO SCH (07:02)
[2020-02-17] MEDS: FAMOTIDINE 20 MG TABLET PO SCH (08:06)
[2020-02-17] MEDS: LORazepam 0.5MG TABLET PO PRN (09:34)
[2020-02-17] MEDS ORDERED: LORazepam 0.5MG TABLET ONE (10:05)
[2020-02-17 10:07] VITALS: BP 127/64
[2020-02-17] MEDS ORDERED: LORazepam 0.5MG TABLET PO PRN (10:30)
[2020-02-17] MEDS: MORPHINE SULFATE 4 MG/ML, 1ML IVPush PRN (10:35)
[2020-02-17 10:44] LABS: TROPONIN I < 0.015 ng/mL (0.000-0.045)
[2020-02-17] MEDS: PROCHLORPERAZINE 10MG TABLET PO SCH ×3 (11:38→23:12)
[2020-02-17 12:32] VITALS: BP 108/67
[2020-02-17] MEDS: ONDANSETRON ODT 4 MG PO SCH ×2 (13:36→20:21)
[2020-02-17] MEDS: CALCIUM CARBONATE 500 MG TAB.CHEW PO PRN (15:32)
[2020-02-17] MEDS ORDERED: MORPHINE SULFATE 4 MG/ML, 1ML IVPush PRN (16:00)
[2020-02-17] MEDS: RIVAROXABAN 20 MG TABLET PO SCH (17:22)
[2020-02-17 18:36] VITALS: BP 125/65
[2020-02-17] MEDS: TEMAZEPAM 15 MG CAPSULE PO PRN (20:21)
[2020-02-18] VITALS (8 sets, daily range): BP systolic 99–144; BP diastolic 66–86
[2020-02-18] MEDS: ONDANSETRON ODT 4 MG PO SCH ×4 (02:37→20:25)
[2020-02-18] MEDS: LORazepam 1MG TABLET PO PRN ×3 (02:37→20:26)
[2020-02-18 05:34] LABS: ANION GAP 3 mmol/L (5-15); CALCIUM 8.6 mg/dL (8.5-10.1); CHLORIDE 104 mmol/L (98-107); CREATININE 0.93 mg/dL (0.55-1.02)
[2020-02-18 05:40] LABS: MEAN CORPUSCULAR HEMOGLOBIN 24.4 pg (27.0-34.8); MEAN CORPUSCULAR HGB CONC 31.7 g/dL (32.4-35.8); MEAN CORPUSCULAR VOLUME 77.1 fL (80-100); MEAN PLATELET VOLUME 9.1 fL (7.4-10.4); PLATELET COUNT 522 x10^3/uL (130-400); RED BLOOD COUNT 3.37 x10^6/uL (3.82-5.3); RED CELL DISTRIBUTION WIDTH 23.4 % (9.6-15.2)
[2020-02-18] MEDS: PROCHLORPERAZINE 10MG TABLET PO SCH ×3 (06:13→16:53)
[2020-02-18] MEDS: HYDROcodone/APAP 5/325 TABLET PO PRN ×2 (06:13→16:56)
[2020-02-18 06:26] LABS: BASOPHILS # (AUTO) 0.03 x10^3/uL (0-0.1); BASOPHILS % (AUTO) 0 % (0-1); EOSINOPHILS # (AUTO) 0.27 x10^3/uL (0-0.4); EOSINOPHILS % (AUTO) 3 % (1-7); LYMPHOCYTES # (AUTO) 0.83 x10^3/uL (1-3.4); LYMPHOCYTES % (AUTO) 10 % (22-44); MD NO; MONOCYTES # (AUTO) 0.73 x10^3/uL (0.2-0.8); MONOCYTES % (AUTO) 8 % (2-9); NEUTROPHILS # (AUTO) 6.86 x10^3/uL (1.8-6.8); NEUTROPHILS % (AUTO) 79 % (42-75)
[2020-02-18] MEDS: FAMOTIDINE 20 MG TABLET PO SCH (10:05)
[2020-02-18] MEDS ORDERED: DIPHENHYDRAMINE 25 MG CAPSULE PO ONE (10:30)
[2020-02-18] MEDS ORDERED: ACETAMINOPHEN 325 MG TABLET PO ONE (10:30)
[2020-02-18] MEDS ORDERED: MAGNESIUM HYDROXIDE 8%, 30ML UDC ONE (12:25)
[2020-02-18] MEDS: MAGNESIUM HYDROXIDE 8%, 30ML UDC PO SCH (12:32)
[2020-02-18] MEDS: RIVAROXABAN 20 MG TABLET PO SCH (16:53)
[2020-02-18] MEDS: CALCIUM CARBONATE 500 MG TAB.CHEW PO PRN (16:57)
[2020-02-18] MEDS: TEMAZEPAM 15 MG CAPSULE PO PRN (20:25)
[2020-02-19] MEDS: HYDROcodone/APAP 5/325 TABLET PO PRN ×3 (00:04→17:04)
[2020-02-19] MEDS: PROCHLORPERAZINE 10MG TABLET PO SCH ×4 (00:05→17:04)
[2020-02-19 01:48] VITALS: BP 134/87
[2020-02-19] MEDS: LORazepam 1MG TABLET PO PRN ×3 (03:10→20:05)
[2020-02-19] MEDS: ONDANSETRON ODT 4 MG PO SCH ×4 (03:10→20:05)
[2020-02-19 03:49] LABS: MEAN CORPUSCULAR HEMOGLOBIN 24.9 pg (27.0-34.8); MEAN CORPUSCULAR VOLUME 77.9 fL (80-100); PLATELET COUNT 501 x10^3/uL (130-400); RED BLOOD COUNT 3.86 x10^6/uL (3.82-5.3); RED CELL DISTRIBUTION WIDTH 22.7 % (9.6-15.2)
[2020-02-19 03:55] LABS: ALANINE AMINOTRANSFERASE 15 U/L (12-78); ANION GAP 5 mmol/L (5-15); CALCIUM 8.8 mg/dL (8.5-10.1); CHLORIDE 102 mmol/L (98-107); CREATININE 0.85 mg/dL (0.55-1.02)
[2020-02-19 03:57] LABS: ALKALINE PHOSPHATASE 127 U/L (45-117); BILIRUBIN,TOTAL 0.3 mg/dL (0.2-1.0); TOTAL PROTEIN 5.9 g/dL (6.4-8.2)
[2020-02-19 04:01] LABS: BASOPHILS # (AUTO) 0.13 x10^3/uL (0-0.1); BASOPHILS % (AUTO) 1 % (0-1); EOSINOPHILS # (AUTO) 0.17 x10^3/uL (0-0.4); EOSINOPHILS % (AUTO) 2 % (1-7); LYMPHOCYTES # (AUTO) 0.93 x10^3/uL (1-3.4); LYMPHOCYTES % (AUTO) 10 % (22-44); MD SCAN; MONOCYTES # (AUTO) 0.64 x10^3/uL (0.2-0.8); MONOCYTES % (AUTO) 7 % (2-9); NEUTROPHILS # (AUTO) 7.77 x10^3/uL (1.8-6.8); NEUTROPHILS % (AUTO) 81 % (42-75)
[2020-02-19 06:38] VITALS: BP 138/80
[2020-02-19] MEDS: FAMOTIDINE 20 MG TABLET PO SCH (08:38)
[2020-02-19] MEDS ORDERED: SODIUM CHLORIDE 0.9% 1,000 ML IV SCH (10:00)
[2020-02-19 12:52] VITALS: BP 142/80
[2020-02-19] MEDS: RIVAROXABAN 20 MG TABLET PO SCH (17:04)
[2020-02-19] MEDS: CALCIUM CARBONATE 500 MG TAB.CHEW PO PRN (17:39)
[2020-02-19 19:45] VITALS: BP 131/77
[2020-02-19] MEDS: TEMAZEPAM 15 MG CAPSULE PO PRN (20:05)
[2020-02-20] MEDS: HYDROcodone/APAP 5/325 TABLET PO PRN ×4 (00:04→22:37)
[2020-02-20] MEDS: PROCHLORPERAZINE 10MG TABLET PO SCH ×5 (00:04→23:27)
[2020-02-20] MEDS: ONDANSETRON ODT 4 MG PO SCH ×4 (00:14→21:02)
[2020-02-20 02:02] VITALS: BP 115/75
[2020-02-20] MEDS: LORazepam 1MG TABLET PO PRN ×2 (04:25→11:46)
[2020-02-20 07:11] VITALS: BP 102/67
[2020-02-20] MEDS ORDERED: SODIUM CHLORIDE 0.9% 2,000 ML IV SCH (08:30)
[2020-02-20] MEDS: FAMOTIDINE 20 MG TABLET PO SCH (09:28)
[2020-02-20] MEDS: MAGNESIUM HYDROXIDE 8%, 30ML UDC PO SCH (09:28)
[2020-02-20] MEDS ORDERED: ONDANSETRON 16 MG, DEXAMETHASONE 12 MG in SODIUM CHLORIDE 0.9% 50 ML IVPB ONE ×2 (12:00→15:00)
[2020-02-20] MEDS ORDERED: FAMOTIDINE 20 MG/2 ML IVPush ONE (12:00)
[2020-02-20] MEDS ORDERED: FOSAPREPITANT 150 MG in SODIUM CHLORIDE 0.9% 145 ML IV ONE (12:00)
[2020-02-20] MEDS ORDERED: DIPHENHYDRAMINE 50 MG/ML, 1ML IVPush ONE (12:00)
[2020-02-20] MEDS ORDERED: SODIUM CHLORIDE 0.9% IV ONE ×2 (12:30→16:00)
[2020-02-20] MEDS ORDERED: CISPLATIN IV ONE ×2 (12:30→16:00)
[2020-02-20 13:19] VITALS: BP 138/82
[2020-02-20] MEDS ORDERED: MANNITOL 25% 12.5 GM in SODIUM CHLORIDE 0.9% 1,000 ML IV PRN (14:00)
[2020-02-20] MEDS ORDERED: FOSAPREPITANT 150 MG in SODIUM CHLORIDE 0.9% 150 ML IV ONE (15:30)
[2020-02-20] MEDS: RIVAROXABAN 20 MG TABLET PO SCH (17:28)
[2020-02-20 19:39] VITALS: BP 129/79
[2020-02-20] MEDS: MANNITOL IV SCH ×2 (21:02→22:37)
[2020-02-20] MEDS: TEMAZEPAM 15 MG CAPSULE PO PRN (21:02)
[2020-02-20] MEDS: SODIUM CHLORIDE 0.9% IV SCH ×2 (21:02→22:37)
[2020-02-21] MEDS: LORazepam 1MG TABLET PO PRN ×3 (02:27→22:15)
[2020-02-21] MEDS: ONDANSETRON ODT 4 MG PO SCH ×4 (02:27→20:09)
[2020-02-21 03:07] VITALS: BP 137/75
[2020-02-21] MEDS: PROCHLORPERAZINE 10MG TABLET PO SCH ×4 (05:19→23:29)
[2020-02-21 05:56] LABS: BASOPHILS # (AUTO) 0.03 x10^3/uL (0-0.1); BASOPHILS % (AUTO) 1 % (0-1); EOSINOPHILS # (AUTO) 0.04 x10^3/uL (0-0.4); EOSINOPHILS % (AUTO) 1 % (1-7); LYMPHOCYTES # (AUTO) 0.26 x10^3/uL (1-3.4); LYMPHOCYTES % (AUTO) 5 % (22-44); MD NO; MEAN CORPUSCULAR HEMOGLOBIN 25.1 pg (27.0-34.8); MEAN CORPUSCULAR VOLUME 78.6 fL (80-100); MEAN PLATELET VOLUME 9.3 fL (7.4-10.4); MONOCYTES # (AUTO) 0.06 x10^3/uL (0.2-0.8); MONOCYTES % (AUTO) 1 % (2-9); NEUTROPHILS # (AUTO) 5.25 x10^3/uL (1.8-6.8); NEUTROPHILS % (AUTO) 93 % (42-75); PLATELET COUNT 507 x10^3/uL (130-400); RED BLOOD COUNT 3.67 x10^6/uL (3.82-5.3); RED CELL DISTRIBUTION WIDTH 22.4 % (9.6-15.2)
[2020-02-21 06:09] LABS: ALANINE AMINOTRANSFERASE 14 U/L (12-78); ANION GAP 6 mmol/L (5-15); CALCIUM 8.2 mg/dL (8.5-10.1); CHLORIDE 106 mmol/L (98-107)
[2020-02-21 06:12] LABS: ALKALINE PHOSPHATASE 128 U/L (45-117); BILIRUBIN,TOTAL 0.3 mg/dL (0.2-1.0); TOTAL PROTEIN 5.9 g/dL (6.4-8.2)
[2020-02-21 06:27] VITALS: BP 148/79
[2020-02-21] MEDS: MAGNESIUM HYDROXIDE 8%, 30ML UDC PO SCH (09:00)
[2020-02-21] MEDS: FAMOTIDINE 20 MG TABLET PO SCH (09:49)
[2020-02-21 12:57] VITALS: BP 155/90
[2020-02-21] MEDS: HYDROcodone/APAP 5/325 TABLET PO PRN ×2 (13:18→23:30)
[2020-02-21] MEDS: RIVAROXABAN 20 MG TABLET PO SCH (16:38)
[2020-02-21 18:59] VITALS: BP 154/94
[2020-02-21] MEDS: TEMAZEPAM 15 MG CAPSULE PO PRN (20:09)
[2020-02-22 00:02] VITALS: BP 147/96
[2020-02-22] MEDS: ONDANSETRON ODT 4 MG PO SCH ×4 (03:09→21:29)
[2020-02-22] MEDS ORDERED: SODIUM CHLORIDE 0.9% 1,000 ML IV SCH (04:00)
[2020-02-22] MEDS: PROCHLORPERAZINE 10MG TABLET PO SCH ×4 (05:27→23:26)
[2020-02-22] MEDS: HYDROcodone/APAP 5/325 TABLET PO PRN ×3 (05:28→18:14)
[2020-02-22 06:44] VITALS: BP 145/92
[2020-02-22] MEDS: FAMOTIDINE 20 MG TABLET PO SCH (08:17)
[2020-02-22] MEDS: MAGNESIUM HYDROXIDE 8%, 30ML UDC PO SCH (08:17)
[2020-02-22] MEDS: LORazepam 1MG TABLET PO PRN (10:49)
[2020-02-22] MEDS: CALCIUM CARBONATE 500 MG TAB.CHEW PO PRN (10:49)
[2020-02-22 13:01] VITALS: BP 153/93
[2020-02-22] MEDS: RIVAROXABAN 20 MG TABLET PO SCH (16:58)
[2020-02-22 18:24] VITALS: BP 147/94
[2020-02-22] MEDS: TEMAZEPAM 15 MG CAPSULE PO PRN (21:29)
[2020-02-23 00:02] VITALS: BP 149/98
[2020-02-23] MEDS: CALCIUM CARBONATE 500 MG TAB.CHEW PO PRN ×2 (00:23→11:04)
[2020-02-23] MEDS: HYDROcodone/APAP 5/325 TABLET PO PRN ×4 (00:38→21:40)
[2020-02-23] MEDS: ONDANSETRON ODT 4 MG PO SCH ×4 (04:14→19:47)
[2020-02-23] MEDS: LORazepam 1MG TABLET PO PRN ×3 (04:14→19:11)
[2020-02-23] MEDS: PROCHLORPERAZINE 10MG TABLET PO SCH ×4 (05:38→23:28)
[2020-02-23 06:49] VITALS: BP_SYST 151; BP_SYST 152; BP_DIAS 89; BP_DIAS 95
[2020-02-23] MEDS: MAGNESIUM HYDROXIDE 8%, 30ML UDC PO SCH (07:32)
[2020-02-23] MEDS: FAMOTIDINE 20 MG TABLET PO SCH (07:33)
[2020-02-23 12:34] VITALS: BP 128/85
[2020-02-23] MEDS: RIVAROXABAN 20 MG TABLET PO SCH (18:12)
[2020-02-23 19:19] VITALS: BP 139/83
[2020-02-23] MEDS: TEMAZEPAM 15 MG CAPSULE PO PRN (23:28)
[2020-02-24] MEDS: ONDANSETRON ODT 4 MG PO SCH ×5 (01:45→20:21)
[2020-02-24 02:03] VITALS: BP 141/92
[2020-02-24] MEDS: HYDROcodone/APAP 5/325 TABLET PO PRN ×4 (04:02→23:20)
[2020-02-24] MEDS: PROCHLORPERAZINE 10MG TABLET PO SCH ×4 (06:23→23:20)
[2020-02-24 06:55] VITALS: BP 128/83
[2020-02-24] MEDS: MAGNESIUM HYDROXIDE 8%, 30ML UDC PO SCH ×2 (08:39→16:43)
[2020-02-24] MEDS: FAMOTIDINE 20 MG TABLET PO SCH (08:39)
[2020-02-24 13:01] VITALS: BP 162/87
[2020-02-24] MEDS: RIVAROXABAN 20 MG TABLET PO SCH (15:58)
[2020-02-24] MEDS ORDERED: TEMAZEPAM 15 MG CAPSULE ONE (20:05)
[2020-02-24 20:10] VITALS: BP 148/83
[2020-02-24] MEDS: TEMAZEPAM 30 MG CAPSULE PO PRN (20:23)
[2020-02-25] MEDS: ONDANSETRON ODT 4 MG PO SCH ×4 (02:04→19:54)
[2020-02-25 02:06] VITALS: BP 136/84
[2020-02-25] MEDS: LORazepam 1MG TABLET PO PRN ×3 (03:12→15:14)
[2020-02-25 03:59] LABS: BASOPHILS # (AUTO) 0.02 x10^3/uL (0-0.1); BASOPHILS % (AUTO) 0 % (0-1); EOSINOPHILS # (AUTO) 0.14 x10^3/uL (0-0.4); EOSINOPHILS % (AUTO) 2 % (1-7); LYMPHOCYTES # (AUTO) 0.53 x10^3/uL (1-3.4); LYMPHOCYTES % (AUTO) 8 % (22-44); MD NO; MEAN CORPUSCULAR HEMOGLOBIN 25.2 pg (27.0-34.8); MEAN CORPUSCULAR HGB CONC 32.2 g/dL (32.4-35.8); MEAN CORPUSCULAR VOLUME 78.4 fL (80-100); MEAN PLATELET VOLUME 9.2 fL (7.4-10.4); MONOCYTES # (AUTO) 0.79 x10^3/uL (0.2-0.8); MONOCYTES % (AUTO) 11 % (2-9); NEUTROPHILS # (AUTO) 5.53 x10^3/uL (1.8-6.8); NEUTROPHILS % (AUTO) 79 % (42-75); PLATELET COUNT 416 x10^3/uL (130-400); RED BLOOD COUNT 3.77 x10^6/uL (3.82-5.3); RED CELL DISTRIBUTION WIDTH 21.9 % (9.6-15.2)
[2020-02-25 04:09] LABS: ANION GAP 4 mmol/L (5-15); CALCIUM 8.7 mg/dL (8.5-10.1); CHLORIDE 101 mmol/L (98-107); CREATININE 0.88 mg/dL (0.55-1.02)
[2020-02-25] MEDS: PROCHLORPERAZINE 10MG TABLET PO SCH ×4 (05:29→23:30)
[2020-02-25] MEDS: HYDROcodone/APAP 5/325 TABLET PO PRN ×4 (05:29→23:03)
[2020-02-25 06:48] VITALS: BP 137/83
[2020-02-25] MEDS: FAMOTIDINE 20 MG TABLET PO SCH (08:38)
[2020-02-25 12:28] VITALS: BP 134/79
[2020-02-25] MEDS: RIVAROXABAN 20 MG TABLET PO SCH (17:20)
[2020-02-25 19:12] VITALS: BP 147/83
[2020-02-25] MEDS ORDERED: TEMAZEPAM 15 MG CAPSULE ONE (19:53)
[2020-02-25] MEDS: TEMAZEPAM 30 MG CAPSULE PO PRN (19:54)
[2020-02-26] MEDS: LORazepam 1MG TABLET PO PRN ×2 (01:56→10:09)
[2020-02-26 02:00] VITALS: BP 119/66
[2020-02-26] MEDS: ONDANSETRON ODT 4 MG PO SCH ×4 (02:00→19:49)
[2020-02-26] MEDS ORDERED: SODIUM CHLORIDE 0.9% 2,000 ML IV SCH (02:30)
[2020-02-26] MEDS: HYDROcodone/APAP 5/325 TABLET PO PRN ×3 (04:42→19:48)
[2020-02-26] MEDS: PROCHLORPERAZINE 10MG TABLET PO SCH ×4 (05:25→23:26)
[2020-02-26 07:56] VITALS: BP 140/77
[2020-02-26] MEDS: FAMOTIDINE 20 MG TABLET PO SCH (08:07)
[2020-02-26] MEDS: MAGNESIUM HYDROXIDE 8%, 30ML UDC PO SCH (08:08)
[2020-02-26] MEDS ORDERED: FOSAPREPITANT 150 MG in SODIUM CHLORIDE 0.9% 150 ML IV ONE (11:00)
[2020-02-26] MEDS ORDERED: ONDANSETRON 16 MG, DEXAMETHASONE 12 MG in SODIUM CHLORIDE 0.9% 50 ML IVPB ONE (11:00)
[2020-02-26] MEDS ORDERED: DIPHENHYDRAMINE 50 MG/ML, 1ML IVPush ONE (11:00)
[2020-02-26] MEDS ORDERED: FAMOTIDINE 20 MG/2 ML IVPush ONE (11:00)
[2020-02-26] MEDS ORDERED: SODIUM CHLORIDE 0.9% IV ONE (11:30)
[2020-02-26] MEDS ORDERED: CISPLATIN IV ONE (11:30)
[2020-02-26 12:53] VITALS: BP 150/86
[2020-02-26] MEDS: SODIUM CHLORIDE 0.9% IV SCH (16:25)
[2020-02-26] MEDS: MANNITOL IV SCH (16:25)
[2020-02-26] MEDS: RIVAROXABAN 20 MG TABLET PO SCH (17:35)
[2020-02-26 18:53] VITALS: BP 158/89
[2020-02-26] MEDS ORDERED: TEMAZEPAM 15 MG CAPSULE ONE (19:47)
[2020-02-26] MEDS: TEMAZEPAM 30 MG CAPSULE PO PRN (19:48)
[2020-02-27] MEDS: ONDANSETRON ODT 4 MG PO SCH ×3 (02:00→14:00)
[2020-02-27 02:07] VITALS: BP 147/82
[2020-02-27] MEDS: HYDROcodone/APAP 5/325 TABLET PO PRN ×3 (02:17→16:54)
[2020-02-27] MEDS: PROCHLORPERAZINE 10MG TABLET PO SCH ×3 (05:30→16:54)
[2020-02-27] MEDS: MAGNESIUM HYDROXIDE 8%, 30ML UDC PO SCH (07:54)
[2020-02-27] MEDS: LORazepam 1MG TABLET PO PRN (07:55)
[2020-02-27] MEDS: FAMOTIDINE 20 MG TABLET PO SCH (07:55)
[2020-02-27 08:05] VITALS: BP 168/96
[2020-02-27] MEDS: RIVAROXABAN 20 MG TABLET PO SCH (16:54)
[2020-02-27 19:12] VITALS: BP 157/86
== END 2020-02-27 20:22 | disposition home health service (06) | DRG 694 ==
LOC: ED 16:06 → EDIP 17:48 → 4NW 17:49 → 3N 02-27 15:22
PROVIDERS: ADMIT Specialist; ATTEND Specialist
PROC: 0T9030Z Drainage of Right Kidney with Drainage Device, Percutaneous Approach (ICD-10-PCS; principal; 2020-02-02)
PROC: 0T777DZ Dilation of Left Ureter with Intraluminal Device, Via Natural or Artificial Opening (ICD-10-PCS; 2020-02-06)
PROC: 0TP5X0Z Removal of Drainage Device from Kidney, External Approach (ICD-10-PCS; 2020-02-09)
PROC: 30233N1 Transfusion of Nonautologous Red Blood Cells into Peripheral Vein, Percutaneous Approach (ICD-10-PCS; 2020-02-09)
PROC: 0T9430Z Drainage of Left Kidney Pelvis with Drainage Device, Percutaneous Approach (ICD-10-PCS; 2020-02-09)
DX: N13.1 Hydronephrosis with ureteral stricture, not elsewhere classified (principal); D62 Acute posthemorrhagic anemia; E87.0 Hyperosmolality and hypernatremia; C53.9 Malignant neoplasm of cervix uteri, unspecified; N17.9 Acute kidney failure, unspecified; M81.0 Age-related osteoporosis without current pathological fracture; I50.9 Heart failure, unspecified; E87.5 Hyperkalemia; K59.00 Constipation, unspecified; G47.00 Insomnia, unspecified; I11.0 Hypertensive heart disease with heart failure; D72.829 Elevated white blood cell count, unspecified; F41.9 Anxiety disorder, unspecified; Z90.49 Acquired absence of other specified parts of digestive tract; Z80.7 Family history of other malignant neoplasms of lymphoid, hematopoietic and related tissues; Z85.41 Personal history of malignant neoplasm of cervix uteri; Z82.5 Family history of asthma and other chronic lower respiratory diseases; Z80.9 Family history of malignant neoplasm, unspecified; Z79.01 Long term (current) use of anticoagulants; Z79.890 Hormone replacement therapy; Z80.8 Family history of malignant neoplasm of other organs or systems
CPT/HCPCS: 36415; 36573; 50432; 50433; 50693; 71045; 74176; 76770; 76937; 76942; 77290; 77295; 77300; 77334; 77387; 77412; 77470; 80048; 80053; 81001; 83690; 83735; 84484; 85025; 86850; 86900; 86923; 87040; 87086; 93005; 96361; 96365; 96375; 99156; 99157; 99285; C1725; C1894; G0378; J0690; J1100; J1453; J2250; J2405; J3010; J3480; J9060; Q0162; Q0164; Q9966; Q9967; C1729; C1751; C1769; C2625; J0780; J1200; J1940; J2150; J2270; J2310; J3490; J7030; J7040; P9016; Q0163